=== PATIENT | male | born 1970 | race Caucasian/White ===

== ENCOUNTER 2021-01-24 20:29 | Emergency (ER) | payer OTHER, SELFPAY ==
[2021-01-24 20:40] VITALS: BP 119/62; PULSE 88; RESP 18; TEMP 37.8; O2SAT 97; BMI 25.0
--- NOTE | 2021-01-24 21:59 | ED_ITS ---
HPI - SOB/Dyspnea General Chief Complaint: Fever Stated Complaint: COVID POSITIVE UNCONTROLLED FEVER Time Seen by Provider: 01/24/21 21:58 Source: patient Mode of arrival: Ambulatory History of Present Illness HPI Narrative: Patient is a 50-year-old male who presents with known COVID positive. He started having symptoms 6 days ago, he tested positive 3 days ago. He is concerned today because of his significant temperature swings. He says he is really hot and cold. His temperature rises up to 103 and goes back down to 98.6. He denies any cough or shortness of breath. He is vaccinated he got his vaccine the beginning of December. He is otherwise healthy. He says tonight he was worried because he was getting a freezing cold temperature was right thumb he took Advil continue to her eyes at which point took Tylenol and decided to come to the emergency department were temperature is 100?. Actually read taken myself is now 98.4 He denies any headaches, nausea or vomiting. He does complain of loss of taste and smell. Review of Systems Review of Systems Narrative: GENERAL: + fever,+ fatigue HEENT: Denies sinus pain, ear pain, sore throat, difficulty swallowing, neck pain RESPIRATORY: Denies dyspnea, cough, wheezing, hemoptysis, sputum. CARDIOVASCULAR: Denies chest pain, palpitations, orthopnea, edema GASTROINTESTINAL: Denies nausea, vomiting, abdominal pain, diarrhea, constipation, melena. : Denies dysuria, frequency, incontinence, hematuria, urinary retention, flank pain. MUSCULOSKELETAL: Denies weakness, joint pain, or bony pain SKIN: No rash, no erythema, no pruritus NEUROLOGIC: Denies weakness, dizziness, headache, numbness, change in speech, confusion PSYCHIATRIC: No concerning psychosocial issues. 12 point review of systems is negative except for those stated above and HPI Patient History Social History Smoking Status: Never smoker Smoking Status: Never smoker alcohol intake frequency: 0-2 drinks per day Substance Use Type: does not use Exam Initial Vital Signs Initial Vital Signs: Vital Signs Temperature 100.0 F H 01/24/21 20:40 Pulse Rate 88 01/24/21 20:40 Respiratory Rate 18 01/24/21 20:40 Blood Pressure 119/62 01/24/21 20:40 Pulse Oximetry 97 01/24/21 20:40 GENERAL: Alert well-appearing 50-year-old male and in no acute distress. HEENT: Head atraumatic,EOMI, pupils reactive, face symmetric, moist mucous membranes CARDIOVASCULAR: Regular rate and rhythm without murmurs, rubs or gallops. RESPIRATORY: Breath sounds equal bilaterally, no wheezes rales or rhonchi. EXTREMITIES: Normal range of motion, no clubbing or edema. Neurovascularly intact NEUROLOGICAL: Alert and oriented x4.Normal gait and speech. SKIN: Warm, dry, no laceration, no petechiae, no rashes or lesions. Course Vital Signs Vital signs: Vital Signs - 8 hr 01/24/21 20:40 01/24/21 22:27 Temperature 100.0 F H 100 F H Pulse Rate 88 Respiratory Rate 18 Blood Pressure 119/62 Pulse Oximetry 97 97 MDM - SOB/Dyspnea MDM Narrative Medical decision making narrative: The patient is educated on fever and when and how to treat the fever. He is certainly not hypoxic he is vaccinated with no comorbidities. I discussed with him home monitoring and when to return to the ED. at this time he does not meet any inpatient criteria. I see no need for any further workup. He overall appears very well Discharge Plan Departure Patient Disposition: Home Clinical Impression: COVID-19 Instructions: COVID-19 Viral Test Activity Restrictions/Additional Instructions: *You have been diagnosed with COVID-19 *What to do: At this time please monitor oxygen at home, oxygen should remain above 90%. If it is decreasing the knee need to return to the emergency department. Please follow CDC guidelines in regards to quarantine and isolation. Fever is body's natural defense mechanism against infectious process, it is expected that he would have fever during this time. *Continue to take medications as directed Ibuprofen 800 mg every 8 hours if needed for pain Tylenol 1000 mg every 6 hours if needed for fever *Follow up with your primary care provider in 2-3 days *Return to ER if you should have oxygen less than 90%, increasing shortness of breath, not drinking any new, worsening or concerning symptoms Referrals: [facility] [Outside]
[2021-01-24 22:27] VITALS: TEMP 37.7; O2SAT 97
== END 2021-01-24 22:28 | disposition home or self-care (01) ==
PROVIDERS: Emergency Provider Emergency Medicine
DX: U07.1 COVID-19 (principal)
CPT/HCPCS: 99281

== ENCOUNTER 2021-01-28 16:07 | Inpatient (IN) | payer OTHER, SELFPAY ==
[2021-01-28] VITALS (16 sets, daily range): BP systolic 113–134; BP diastolic 59–71; PULSE 88–94; RESP 21–39; TEMP 37.7–39.4; O2SAT 85–96; BMI 25.0; BMI 25.2
--- NOTE | 2021-01-28 17:29 | ED_ITS ---
HPI - General Adult General Chief complaint: Shortness of Breath/Dyspnea Stated complaint: possible pneumonia Time Seen by Provider: 01/28/21 17:17 Source: patient Mode of arrival: Ambulatory Limitations: no limitations History of Present Illness HPI narrative: Patient is a 50-year-old male. Is fully vaccinated against COVID-19. Receive the [employer] vaccine. Approximately 10 days ago started having sy mptoms that were consistent with COVID. He did test positive for COVID. Was seen here in the emergency department because of temperatures that seem to be rising and falling. He was provided reassurance and discharged home. Since that time he purchased a pulse oximeter. He states that his family also had symptoms with they have improved. He continues to have shortness of breath and feeling very fatigued. Specifically shortness of breath with exertion. Oxygen saturations at home were consistently below 90 with exertion. He contact his primary doctor today. Received a prescription for azithromycin. He has taken 1 dose of this medication. Was also reported that he received a prescription for ivermectin. He has not taken this medication. Related Data Allergies Allergy/AdvReac Type Severity Reaction Status Date / Time No Known Drug Allergies Allergy Verified 01/28/21 16:11 Review of Systems Constitutional Constitutional: Reports fever(s) and Reports headache(s) ENT Ears, Nose, Mouth, and Throat: Reports headache(s) Cardiovascular Cardiovascular: Reports as per HPI, Reports system reviewed and no additional complaints, except as documented, Reports dyspnea and Reports dyspnea on exertion Respiratory Respiratory: Reports cough, Reports dyspnea and Reports dyspnea on exertion Gastrointestinal Gastrointestinal: Reports system reviewed and no additional complaints, except as documented Musculoskeletal Musculoskeletal: Reports system reviewed and no additional complaints, except as documented Integumentary/Breasts Skin/Breast: Reports system reviewed and no additional complaints, except as documented Neurologic Neurologic: Reports system reviewed and no additional complaints, except as documented and Reports headache(s) Hematologic/Lymphatic On Anticoagulants: No Patient History Medical History Patient denies medical problems Social History Smoking Status: Never smoker Smoking Status: Never smoker alcohol intake frequency: holidays/special occasions only Substance Use Type: does not use Exam Initial Vital Signs Initial Vital Signs: Vital Signs Temperature 99.9 F H 01/28/21 16:11 Pulse Rate 92 H 01/28/21 16:11 Respiratory Rate 24 01/28/21 16:11 Blood Pressure 134/65 01/28/21 16:11 Pulse Oximetry 90 L 01/28/21 16:11 Const General: cooperative, comfortable, well developed and well groomed Limitations: mental status not altered [facility] Head: normal to inspection Resp Effort & Inspection: labored and tachypneic Auscultation: rhonchi Cardio Rate: regular rate Rhythm: regular rhythm GI Inspection: non-distended Palpation: soft Back/Spine/Pelvis Back: normal to inspection Skin Lesions: no lesions Rashes: no rashes Neuro General: patient alert, patient awake, patient oriented x3 and moves all extremities Extrem General: capillary refill normal and No edema Psych Appearance: grossly normal and well kempt Course Orders Ordered: ED Orders 01/28/21 17:35 C-Reactive Protein Quant Stat Complete Blood Count AUTO DIFF Stat Comprehensive Metabolic Panel Stat D Dimer Stat Ferritin Stat Lactate (Lactic Acid) Stat Lactate Dehydrogenase Stat NT-proBNP (BNP-Adult 18+) Stat Procalcitonin Stat Troponin & CK Cardiac Panel Stat EKG-12 Lead Stat 01/28/21 17:36 XR chest 1V Stat Sodium Chloride (Normal Saline 0.9%) 1,000 mls @ 125 mls/hr IV CONT HOMERO Last Admin: 01/28/21 17:44 Dose: 125 mls/hr Documented by: ANAYELI Discontinued Medications Dexamethasone (Dexamethasone 10 Mg/Ml Vial) 10 mg IV NOW ONE Stop: 01/28/21 17:36 Last Admin: 01/28/21 17:44 Dose: 10 mg Documented by: ANAYELI Remdesivir 200 mg/ Sodium (Chloride) 250 mls @ 250 mls/hr IV NOW ONE Stop: 01/28/21 18:34 Last Admin: 01/28/21 17:44 Dose: Not Given Documented by: ANAYELI Vital Signs Vital signs: Vital Signs - 8 hr 01/28/21 16:11 Temperature 99.9 F H Pulse Rate 92 H Respiratory Rate 24 Blood Pressure 134/65 Pulse Oximetry 90 L Medical Decision Making Lab Data Lab results reviewed: Yes I reviewed the patient's lab results. Result diagrams: 01/28/21 17:35 01/28/21 17:35 Labs: Lab Results 01/28/21 01/28/21 01/28/21 Range/Units 17:35 17:35 17:35 WBC 10.2 (4.5-11.0) X10^3/uL RBC 4.52 (4.5-5.9) X10^6/uL Hgb 13.5 (13.5-17.5) g/dL Hct 39.6 L (41-53) % MCV 87.6 (80-100) fL MCH 30.0 (26-34) PG MCHC 34.2 (30-36) % RDW 13.9 (11.6-14.8) % Plt Count 196 (150-400) X10^3/uL Neut % (Auto) 86.7 H (50-75) % Lymph % (Auto) 4.9 L (25-40) % [place] % (Auto) 7.6 (3-14) % Eos % (Auto) 0.0 L (2-4) % Baso % (Auto) 0.8 (0-2) % Neut # (Auto) 8800 H (8825-2818) /uL Lymph # (Auto) 500 L (9301-6651) /uL [place] # (Auto) 800 (0-900) /uL Eos # (Auto) 0 (0-450) /uL Baso # (Auto) 100 (0-100) /uL D-Dimer 448 H (<230) ng/mL Sodium 133 L (137-145) mmol/L Potassium 4.6 (3.4-5.1) mmol/L Chloride 96 L (98-107) mmol/L Carbon Dioxide 28 (22-32) mmol/L BUN 15 (9-20) mg/dL Creatinine 0.97 (0.66-1.25) mg/dL Estimated GFR > 60.0 (>60) mL/min BUN/Creatinine Ratio 15.5 (6-22) Glucose 128 H (70-100) mg/dL Lactate (0.7-2.1) mmol/L Calcium 8.3 L (8.4-10.2) mg/dL Total Bilirubin 0.6 (0.2-1.3) mg/dL AST 78 H (17-59) IU/L ALT 42 (<50) IU/L Alkaline Phosphatase 59 (38-126) U/L Lactate Dehydrogenase (313-618) U/L Total Creatine Kinase 693 H (55-170) U/L CK-MB (CK-2) 0.35 (<2.37) ng/mL CK-MB (CK-2) Rel Index 0.1 L (1.5-5.0) % Troponin I < 0.012 (0.01-0.034) ng/mL C-Reactive Protein (<1.0) mg/dL NT-Pro-B Natriuret Pep (<125) pg/mL Total Protein 7.4 (6.3-8.2) g/dL Albumin 4.0 (3.5-5.0) g/dL Globulin 3.4 (1.7-4.1) g/dL Albumin/Globulin Ratio 1.2 (1.0-2.8) Procalcitonin 0.22 (<0.5) ng/mL 01/28/21 01/28/21 Range/Units 17:35 17:35 WBC (4.5-11.0) X10^3/uL RBC (4.5-5.9) X10^6/uL Hgb (13.5-17.5) g/dL Hct (41-53) % MCV (80-100) fL MCH (26-34) PG MCHC (30-36) % RDW (11.6-14.8) % Plt Count (150-400) X10^3/uL Neut % (Auto) (50-75) % Lymph % (Auto) (25-40) % [place] % (Auto) (3-14) % Eos % (Auto) (2-4) % Baso % (Auto) (0-2) % Neut # (Auto) (3783-7931) /uL Lymph # (Auto) (1855-9065) /uL [place] # (Auto) (0-900) /uL Eos # (Auto) (0-450) /uL Baso # (Auto) (0-100) /uL D-Dimer (<230) ng/mL Sodium (137-145) mmol/L Potassium (3.4-5.1) mmol/L Chloride (98-107) mmol/L Carbon Dioxide (22-32) mmol/L BUN (9-20) mg/dL Creatinine (0.66-1.25) mg/dL Estimated GFR (>60) mL/min BUN/Creatinine Ratio (6-22) Glucose (70-100) mg/dL Lactate 2.5 H (0.7-2.1) mmol/L Calcium (8.4-10.2) mg/dL Total Bilirubin (0.2-1.3) mg/dL AST (17-59) IU/L ALT (<50) IU/L Alkaline Phosphatase (38-126) U/L Lactate Dehydrogenase 1331 H (313-618) U/L Total Creatine Kinase (55-170) U/L CK-MB (CK-2) (<2.37) ng/mL CK-MB (CK-2) Rel Index (1.5-5.0) % Troponin I (0.01-0.034) ng/mL C-Reactive Protein 25.8 H (<1.0) mg/dL NT-Pro-B Natriuret Pep 144 H (<125) pg/mL Total Protein (6.3-8.2) g/dL Albumin (3.5-5.0) g/dL Globulin (1.7-4.1) g/dL Albumin/Globulin Ratio (1.0-2.8) Procalcitonin (<0.5) ng/mL MDM Narrative Medical decision making narrative: Patient is hypoxic on room air. Received oxygen by nasal cannula with an improvement of his symptoms and his oxygen saturation. Chest x-ray is consistent with someone with COVID. Patient denied the remdesivir. Patient does require admission the hospital secondary to his hypoxia. Discussed the case with Dr. Mills with Internal Medicine who will may for further evaluation treatment. Discussed the admission with patient expressed understanding and agreement. Discharge Plan Departure Patient Disposition: Admitted As Inpatient Clinical Impression: COVID-19, Hypoxia
--- NOTE | 2021-01-28 17:36 | DI.RAD.S_ITS ---
PROCEDURE: XR CHEST 1V INDICATIONS: flu-like symptoms TECHNIQUE: One view of the chest was acquired. COMPARISON: None. FINDINGS: Surgical changes and devices: None. Lungs and pleura: Patchy bilateral pulmonary infiltrates consistent with pneumonia. Low lung volumes accentuate pulmonary interstitium and heart size. Mediastinum: Mediastinal contours appear normal. Heart size is normal. Bones and chest wall: No suspicious bony lesions. Overlying soft tissues appear unremarkable. IMPRESSION: Patchy bilateral pulmonary infiltrates, consistent with pneumonia Approved by: Kalyan Rosa M.D. on 01/28/2021 at 18:01
[2021-01-28] MEDS: DEXAMETHASONE 10 MG/ML VIAL IV (17:44)
[2021-01-28] MEDS: SODIUM CHLORIDE 0.9% 1,000 ML 125 ML IV (17:44)
[2021-01-28 17:55] LABS: Add Manual Diff / Slide Review NO; Basophils Absolute Auto 100 /uL (0-100); Basophils Percent Auto 0.8 % (0-2); Eosinophils Absolute Auto 0 /uL (0-450); Hematocrit 39.6 % (41-53); Hemoglobin 13.5 g/dL (13.5-17.5); Lymphocytes Absolute Auto 500 /uL (1100-4500); Lymphocytes Percent Auto 4.9 % (25-40); Mean Corpuscular HGB Conc 34.2 % (30-36); Mean Corpuscular Volume 87.6 fL (80-100); Monocytes Absolute Auto 800 /uL (0-900); Monocytes Percent Auto 7.6 % (3-14); Neutrophils Absolute Auto 8800 /uL (1500-7000); Neutrophils Percent Auto 86.7 % (50-75); Platelet Count 196 X10^3/uL (150-400); Red Blood Cell Count 4.52 X10^6/uL (4.5-5.9); Red Cell Distribution Width 13.9 % (11.6-14.8); White Blood Cell Count 10.2 X10^3/uL (4.5-11.0)
[2021-01-28 18:03] LABS: D Dimer 448 ng/mL (<230)
[2021-01-28 18:04] LABS: Alanine Aminotransferase 42 IU/L (<50); Albumin Globulin Ratio 1.2 (1.0-2.8); Alkaline Phosphatase 59 U/L (38-126); Aspartate Aminotransferase 78 IU/L (17-59); BUN Creatinine Ratio 15.5 (6-22); Bilirubin Total 0.6 mg/dL (0.2-1.3); Blood Urea Nitrogen 15 mg/dL (9-20); Calcium 8.3 mg/dL (8.4-10.2); Carbon Dioxide 28 mmol/L (22-32); Chloride 96 mmol/L (98-107); Creatine Kinase 693 U/L (55-170); Estimated Glomerular Filt Rate > 60.0 mL/min (>60); Globulin 3.4 g/dL (1.7-4.1); Glucose 128 mg/dL (70-100); HEMOLYSIS 18 (0-50); Lactate (Lactic Acid) 2.5 mmol/L (0.7-2.1); Potassium 4.6 mmol/L (3.4-5.1); Sodium 133 mmol/L (137-145); Total Protein 7.4 g/dL (6.3-8.2)
[2021-01-28 18:08] LABS: Lactate Dehydrogenase 1331 U/L (313-618)
[2021-01-28 18:13] LABS: NT-proBNP (BNP-Adult 18+) 144 pg/mL (<125)
[2021-01-28 18:16] LABS: Troponin I < 0.012 ng/mL (0.01-0.034)
[2021-01-28 18:19] LABS: CKMB % Relative Index 0.1 % (1.5-5.0); Creatine Kinase MB 0.35 ng/mL (<2.37)
[2021-01-28 18:20] LABS: C-Reactive Protein Quant 25.8 mg/dL (<1.0); Procalcitonin 0.22 ng/mL (<0.5)
[2021-01-28 19:32] LABS: Ferritin 1360 ng/mL (18-464)
[2021-01-28 19:46] LABS: Reflexed Lactate in 2 Hours Y
[2021-01-28 21:40] LABS: Lactate 2HR (Lactic Acid Rflx) 1.1 mmol/L (0.7-2.1)
[2021-01-28] MEDS: ACETAMINOPHEN 325 MG TABLET 650 MG PO (21:43)
--- NOTE | 2021-01-28 22:00 | PM.HP.1 ---
History of Present Illness History of Present Illness Time Patient Seen: 22:00 Chief complaint: possible pneumonia Narrative: Mr. Leal is a 50M with no significant PMH who presents with fevers, cough and recent positive COVID test. He notes that he did get the JJ vaccine in early December. Approximately 10 days ago he began developing symptoms of cough. He was seen here in the ED a few days ago but was able to be discharged home. His family has had symptoms of COVID. Since being discharge he has had worsening shortness of breath and fevers. He bought a pulse ox with sats in the 80s primarily with exertion. He was prescribed azithromycin and ivermectin, but has not taken ivermectin. He did not get monoclonal antibody. In the ED workup was done, vitals notable for temperature of 99.9, hr in 90s, rr in 20s, pulse ox in high 80s to low 90s. He was placed on oxygen. Labs notable for WBC 10.2, hgb 13.5, plts 196, na 133, creatinine 0.97. Lactate 2.5, improved to 1.1 with IV fluids. CRP 25.8, ldh 1331. Chest xray showed patchy bilateral pulmonary infiltrates. He was admitted for further treatment. Family history: patient denies any known medical history for parents Patient History Medical History Patient denies medical problems Family & Social History Social History: household members spouse,children Prior Living Arrangements House Safety & Behavioral: Feels Safe in Current Yes Environment Been Physically Hurt or No Threatened By a Person Suicidal Ideation Description None Suicide Plan Description No Plan Tobacco & Substance use: Smoking Status Never smoker alcohol intake frequency holiday/special occasion Substance Use Type does not use Meds Home Medications and Allergies Home Medications Medication Instructions Recorded Confirmed Type azithromycin 250 mg capsule 500 mg PO 01/28/21 History Allergies Allergy/AdvReac Type Severity Reaction Status Date / Time No Known Drug Allergies Allergy Verified 01/28/21 16:11 Review of Systems Review of Systems Narrative: 14 systems reviewed and negative aside from what is noted in HPI Exam Vital Signs (past 8 hours): - 01/28/21 19:23 01/28/21 19:27 01/28/21 19:30 Temperature Pulse Rate 90 Respiratory Rate 30 H Blood Pressure 116/63 Pulse Oximetry 93 93 92 01/28/21 20:00 01/28/21 20:30 01/28/21 20:45 Temperature 100.7 F H Pulse Rate 88 94 H Respiratory Rate 32 H 21 Blood Pressure 120/64 115/59 L Pulse Oximetry 95 85 L 93 01/28/21 21:22 01/28/21 21:43 01/28/21 22:33 Temperature 101.4 F H 103 F H 101.4 F H Pulse Rate Respiratory Rate Blood Pressure Pulse Oximetry 01/28/21 23:40 01/29/21 00:00 Temperature 97.9 F Pulse Rate Respiratory Rate 24 Blood Pressure Pulse Oximetry 92 Oxygen Delivery Method Nasal Cannula Oxygen Flow Rate 5 Narrative Exam Narrative: GEN: mild respiratory distress, tachypneic, unable to speak full sentences due to coughing HEENT: moist mucous membranes, PERRL NECK: trachea midline, no JVD CV: regular rate and rhythm, no murmurs PULM: poor air movement bilaterally, coarse breath sounds ABD: soft, nontender, nondistended, no organomegaly, normal bowel sounds EXT: warm and well perfused with no edema NEURO: awake, alert, oriented, moving all extremities Objective Labs Result Diagrams: 01/28/21 17:35 01/28/21 17:35 Labs: Laboratory Results - last 24 hr 01/28/21 01/28/21 01/28/21 17:35 17:35 17:35 WBC 10.2 RBC 4.52 Hgb 13.5 Hct 39.6 L MCV 87.6 MCH 30.0 MCHC 34.2 RDW 13.9 Plt Count 196 Neut % (Auto) 86.7 H Lymph % (Auto) 4.9 L [place] % (Auto) 7.6 Eos % (Auto) 0.0 L Baso % (Auto) 0.8 Neut # (Auto) 8800 H Lymph # (Auto) 500 L [place] # (Auto) 800 Eos # (Auto) 0 Baso # (Auto) 100 D-Dimer 448 H Sodium 133 L Potassium 4.6 Chloride 96 L Carbon Dioxide 28 BUN 15 Creatinine 0.97 Estimated GFR > 60.0 BUN/Creatinine Ratio 15.5 Glucose 128 H Lactate Calcium 8.3 L Ferritin Total Bilirubin 0.6 AST 78 H ALT 42 Alkaline Phosphatase 59 Lactate Dehydrogenase Total Creatine Kinase 693 H CK-MB (CK-2) 0.35 CK-MB (CK-2) Rel Index 0.1 L Troponin I < 0.012 C-Reactive Protein NT-Pro-B Natriuret Pep Total Protein 7.4 Albumin 4.0 Globulin 3.4 Albumin/Globulin Ratio 1.2 Procalcitonin 0.22 SARS-CoV-2 (PCR) 01/28/21 01/28/21 01/28/21 17:35 17:35 21:13 WBC RBC Hgb Hct MCV MCH MCHC RDW Plt Count Neut % (Auto) Lymph % (Auto) [place] % (Auto) Eos % (Auto) Baso % (Auto) Neut # (Auto) Lymph # (Auto) [place] # (Auto) Eos # (Auto) Baso # (Auto) D-Dimer Sodium Potassium Chloride Carbon Dioxide BUN Creatinine Estimated GFR BUN/Creatinine Ratio Glucose Lactate 2.5 H 1.1 Calcium Ferritin 1360 H Total Bilirubin AST ALT Alkaline Phosphatase Lactate Dehydrogenase 1331 H Total Creatine Kinase CK-MB (CK-2) CK-MB (CK-2) Rel Index Troponin I C-Reactive Protein 25.8 H NT-Pro-B Natriuret Pep 144 H Total Protein Albumin Globulin Albumin/Globulin Ratio Procalcitonin SARS-CoV-2 (PCR) 01/29/21 00:00 WBC RBC Hgb Hct MCV MCH MCHC RDW Plt Count Neut % (Auto) Lymph % (Auto) [place] % (Auto) Eos % (Auto) Baso % (Auto) Neut # (Auto) Lymph # (Auto) [place] # (Auto) Eos # (Auto) Baso # (Auto) D-Dimer Sodium Potassium Chloride Carbon Dioxide BUN Creatinine Estimated GFR BUN/Creatinine Ratio Glucose Lactate Calcium Ferritin Total Bilirubin AST ALT Alkaline Phosphatase Lactate Dehydrogenase Total Creatine Kinase CK-MB (CK-2) CK-MB (CK-2) Rel Index Troponin I C-Reactive Protein NT-Pro-B Natriuret Pep Total Protein Albumin Globulin Albumin/Globulin Ratio Procalcitonin SARS-CoV-2 (PCR) Positive H Assessment & Plan Assessment & Plan narrative: Mr. Leal is a 50M with no significant PMH who presents with fevers, cough, shortness of breath found to have COVID pneumonia. 1. Acute hypoxemic respiratory failure secondary to COVID pneumonia -did get vaccinated with J+J vaccine in early December -decline remdesivir -ordered for dexamethasone -supplemental o2 for sats goal >90% -advise to prone as frequently as possible CODE: Full Proxy: Rosario Carranza, family I have utilized all available immediate resources to obtain, update, or review of the patient's current medications Time Spent With Patient Critical Care time: I spent a total of [] minutes of critical care time on this patient's care today; this time is exclusive of procedural time. Quality VTE Deep Vein Thrombosis/Pulmonary Embolism Present on Admission: No MIPS - Admit I confirm the patient?s Advance Care Plan is present, Code status is documented, Surrogate decision maker is in patient?s record [If Yes, STOP here]: Yes
--- NOTE | 2021-01-28 22:24 | PC.ADMIT ---
Addendum entered by Suzie Sevilla R.N. 01/29/21 01:53: Up to bathroom with SBA. Had small loose BM and voided 625cc. When back to bed O2 sat down to 85% and took approximately 5 minutes to get sat back > 90%. Coughing quite a bit but non productive. Had attempted proning earlier after discussion but states he was unable to tolerate it for very long. Original Note: [email or web address] Patient admitted to room 204 from ER per stepriscilaer and transferred into bed. Patient is alert and oriented. Breath sounds diminished throughout. Respirations are shallow and has exacerbation of cough when trying to take deep breaths. States prior to coming to hospital had been coughing up tam/green sputum but cough has been non productive today. Arrived on oxygen at 3L/min per NC with sat of 85% so increased oxygen to 5L/min and was 90% when getting up to bathroom and 93% at rest. Placed on continuous oximetry. Temp was initially elevated at 100.[address] Rodriguez contacted as no orders had yet been entered for patient. After receiving Tylenol order rechecked temp and was 103 and was medicated with Tylenol and temp now rechecked and is 101.4. BT hypoactive and patient reports he has been taking in mostly liquids and stools have been loose. Up to bathroom with SBA (patient appears very weak) and voided 400cc dark guerda urine. Advised patient to call for assistance when needing to get out of bed and he verbalized understanding. Is able to turn himself in bed. Reports pain in lungs when coughing. On isolation precautions as tested covid +. Oriented to call light and bed controls. Fall risk score is moderate. Admission Note: The patient,Ollie Leal,50 y/o, was given written information regarding hospital policies, unit procedures and contact persons. Patient's smoking status: Never smoker. Vital Signs - 8 hr 01/28/21 16:11 01/28/21 17:18 01/28/21 17:30 Temperature 99.9 F H Pulse Rate 92 H 91 H 91 H Respiratory Rate 24 24 Blood Pressure 134/65 130/71 119/67 Pulse Oximetry 90 L 92 95 01/28/21 18:00 01/28/21 18:30 01/28/21 19:00 Temperature Pulse Rate 88 90 90 Respiratory Rate 26 H 39 H 36 H Blood Pressure 113/63 114/62 117/64 Pulse Oximetry 96 94 96 01/28/21 19:30 01/28/21 20:00 01/28/21 20:30 Temperature Pulse Rate 90 88 Respiratory Rate 30 H 32 H Blood Pressure 116/63 120/64 Pulse Oximetry 92 95 85 L 01/28/21 20:45 01/28/21 21:43 Temperature 100.7 F H 103 F H Pulse Rate 94 H Respiratory Rate 21 Blood Pressure 115/59 L Pulse Oximetry 93
[2021-01-29] VITALS (12 sets, daily range): BP systolic 102–123; BP diastolic 69–85; PULSE 65–86; RESP 16–24; TEMP 36.4–37.2; O2SAT 83–93; BMI 25.2
[2021-01-29 00:55] LABS: COVID19 - ADMIT (NP swab/PCR) POSITIVE (Negative)
[2021-01-29 06:34] LABS: Add Manual Diff / Slide Review NO; Basophils Absolute Auto 0 /uL (0-100); Basophils Percent Auto 0.2 % (0-2); Eosinophils Absolute Auto 0 /uL (0-450); Hematocrit 38.8 % (41-53); Hemoglobin 13.2 g/dL (13.5-17.5); Lymphocytes Absolute Auto 700 /uL (1100-4500); Lymphocytes Percent Auto 7.3 % (25-40); Mean Corpuscular HGB Conc 34.1 % (30-36); Monocytes Absolute Auto 600 /uL (0-900); Monocytes Percent Auto 6.3 % (3-14); Neutrophils Absolute Auto 8000 /uL (1500-7000); Neutrophils Percent Auto 86.2 % (50-75); Platelet Count 216 X10^3/uL (150-400); Red Blood Cell Count 4.41 X10^6/uL (4.5-5.9); White Blood Cell Count 9.3 X10^3/uL (4.5-11.0)
[2021-01-29 06:46] LABS: Blood Urea Nitrogen 16 mg/dL (9-20); Calcium 8.2 mg/dL (8.4-10.2); Carbon Dioxide 28 mmol/L (22-32); Chloride 101 mmol/L (98-107); Estimated Glomerular Filt Rate > 60.0 mL/min (>60); Glucose 157 mg/dL (70-100); HEMOLYSIS < 15 (0-50); Potassium 4.8 mmol/L (3.4-5.1); Sodium 135 mmol/L (137-145)
--- NOTE | 2021-01-29 06:50 | P.PN_ITS ---
Subjective Subjective Date Patient Seen: 01/29/21 Time Patient Seen: 06:30 Interval history: This morning he feels improved. Overnight he did spike a fever to 103. He improved with tylenol. Oxygen was increased to 5L. This morning he feels less short of breath. His cough has improved. Exam Vital Signs (past 8 hours): - 01/28/21 23:40 01/29/21 00:00 01/29/21 03:25 Temperature 97.9 F 98.2 F Pulse Rate Respiratory Rate 24 Blood Pressure Pulse Oximetry 92 01/29/21 04:12 01/29/21 05:25 Temperature 97.7 F Pulse Rate 65 Respiratory Rate 16 Blood Pressure 119/77 Pulse Oximetry 93 91 Oxygen Delivery Method Nasal Cannula Oxygen Flow Rate 5 Narrative Exam Narrative: GEN: no acute distress HEENT: moist mucous membranes, PERRL NECK: trachea midline, no JVD CV: regular rate and rhythm, no murmurs PULM: poor air movement bilaterally ABD: soft, nontender, nondistended, no organomegaly, normal bowel sounds EXT: warm and well perfused with no edema NEURO: awake, alert, oriented, moving all extremities Objective Labs Result Diagrams: 01/29/21 06:12 01/29/21 06:12 Labs: Laboratory Results - last 24 hr 01/28/21 01/28/21 01/28/21 17:35 17:35 17:35 WBC 10.2 RBC 4.52 Hgb 13.5 Hct 39.6 L MCV 87.6 MCH 30.0 MCHC 34.2 RDW 13.9 Plt Count 196 Neut % (Auto) 86.7 H Lymph % (Auto) 4.9 L [place] % (Auto) 7.6 Eos % (Auto) 0.0 L Baso % (Auto) 0.8 Neut # (Auto) 8800 H Lymph # (Auto) 500 L [place] # (Auto) 800 Eos # (Auto) 0 Baso # (Auto) 100 D-Dimer 448 H Sodium 133 L Potassium 4.6 Chloride 96 L Carbon Dioxide 28 BUN 15 Creatinine 0.97 Estimated GFR > 60.0 BUN/Creatinine Ratio 15.5 Glucose 128 H Lactate Calcium 8.3 L Ferritin Total Bilirubin 0.6 AST 78 H ALT 42 Alkaline Phosphatase 59 Lactate Dehydrogenase Total Creatine Kinase 693 H CK-MB (CK-2) 0.35 CK-MB (CK-2) Rel Index 0.1 L Troponin I < 0.012 C-Reactive Protein NT-Pro-B Natriuret Pep Total Protein 7.4 Albumin 4.0 Globulin 3.4 Albumin/Globulin Ratio 1.2 Procalcitonin 0.22 SARS-CoV-2 (PCR) 01/28/21 01/28/21 01/28/21 17:35 17:35 21:13 WBC RBC Hgb Hct MCV MCH MCHC RDW Plt Count Neut % (Auto) Lymph % (Auto) [place] % (Auto) Eos % (Auto) Baso % (Auto) Neut # (Auto) Lymph # (Auto) [place] # (Auto) Eos # (Auto) Baso # (Auto) D-Dimer Sodium Potassium Chloride Carbon Dioxide BUN Creatinine Estimated GFR BUN/Creatinine Ratio Glucose Lactate 2.5 H 1.1 Calcium Ferritin 1360 H Total Bilirubin AST ALT Alkaline Phosphatase Lactate Dehydrogenase 1331 H Total Creatine Kinase CK-MB (CK-2) CK-MB (CK-2) Rel Index Troponin I C-Reactive Protein 25.8 H NT-Pro-B Natriuret Pep 144 H Total Protein Albumin Globulin Albumin/Globulin Ratio Procalcitonin SARS-CoV-2 (PCR) 01/29/21 01/29/21 01/29/21 00:00 06:12 06:12 WBC 9.3 RBC 4.41 L Hgb 13.2 L Hct 38.8 L MCV 88.0 MCH 30.0 MCHC 34.1 RDW 14.0 Plt Count 216 Neut % (Auto) 86.2 H Lymph % (Auto) 7.3 L [place] % (Auto) 6.3 Eos % (Auto) 0.0 L Baso % (Auto) 0.2 Neut # (Auto) 8000 H Lymph # (Auto) 700 L [place] # (Auto) 600 Eos # (Auto) 0 Baso # (Auto) 0 D-Dimer Sodium 135 L Potassium 4.8 Chloride 101 Carbon Dioxide 28 BUN 16 Creatinine 0.84 Estimated GFR > 60.0 BUN/Creatinine Ratio 19.0 Glucose 157 H Lactate Calcium 8.2 L Ferritin Total Bilirubin AST ALT Alkaline Phosphatase Lactate Dehydrogenase Total Creatine Kinase CK-MB (CK-2) CK-MB (CK-2) Rel Index Troponin I C-Reactive Protein NT-Pro-B Natriuret Pep Total Protein Albumin Globulin Albumin/Globulin Ratio Procalcitonin SARS-CoV-2 (PCR) Positive H PFSH Medical History Patient denies medical problems Social History household members: spouse and children Smoking Status: Never smoker Assessment & Plan Assessment & Plan narrative: Mr. Leal is a 50M with no significant PMH who presents with fevers, cough, shortness of breath found to have COVID pneumonia. 1. Acute hypoxemic respiratory failure secondary to COVID pneumonia -did get vaccinated with J+J vaccine in early December -declined remdesivir -ordered for dexamethasone -supplemental o2 for sats goal >90% -advise to prone as frequently as possible -overnight o2 requirements did increase from 2L to 5L oxygen, wean as tolerated Time Spent With Patient Critical Care time: I spent a total of [] minutes of critical care time on this patient's care today; this time is exclusive of procedural time. Quality VTE Deep Vein Thrombosis/Pulmonary Embolism Present on Admission: No
[2021-01-29] MEDS: SODIUM CHLORIDE 0.9% FLUSH 10 ML IV ×2 (09:26→22:01)
[2021-01-29] MEDS: ENOXAPARIN 40 MG/0.4 ML SYRINGE SUBCUT (09:26)
[2021-01-29] MEDS: DEXAMETHASONE 10 MG/ML VIAL 6 MG IV (09:26)
[2021-01-29] MEDS: ACETAMINOPHEN 325 MG TABLET 650 MG PO ×2 (09:26→22:01)
--- NOTE | 2021-01-29 11:12 | CM.DANOTE ---
DCP assessment: patient is a 50 yr old male who was admitted for Covid pneumonia. Patient currently on high flow 10L per NC. CM called patient due to Covid + status was unable to meet in person. Patient was alert and oriented x4 during phone conversation patient stated he lives here in [place] with his Rosario and there two young children. 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 I: prime and self pay Plan: DC home with no identified DC planning needs at this time. CM department will follow to assist with any new DC planning needs that may arise. Yuki Wang RNvehicle calibration engineer Discharge Planning/Care Management CM Discharge Assessment Start: 01/29/21 11:09 Freq: Status: Active Protocol: Document 01/29/21 11:09 (Rec: 01/29/21 11:11 [id number]) Discharge Planning Assessment Assigned Coater Helper Yuki Wang RN Case Manger DPOA/Assigned Designee Name Rosario Carranza- Contact Information [phone] Advance Directives? No History Provided By Patient Has Patient been admitted in last 30 No days? Prior Living Arrangements House Household Members spouse,children Comment patient lives with his and their two children a 4 yr old and a 6 yr old Type of transporation used prior to Drives own vehicle admit Independent with ADL's Yes Is patient alert and oriented? Yes Comment No needs with ADLS Caregiver for Another Yes: Patient has two children ages 4 & 6 Comment Currently on high flow oxygen 10L of O2 per NC Comment NO DME used at [employer] Comment Patient may need Home O2 at DC depending on Oxygenation needs at dc Barriers to Discharge No Discharge Plan Home Referrals Initiated None needed Whiteboard Updated in Patient Room with Yes name and ext. # of Coater Helper Review Status In Process Next Review Type Continued Stay Review
--- NOTE | 2021-01-29 11:58 | PC.NURSE ---
Day shift: Pt seen by PT this AM and is now on 6L HFNC with O2 of 95%. Instructed on I.S. use and encouraged to cough and deep breath. Tolerating his lunch at this time. Dr Mills and charge nurse informed of Pt now being on HFNC. Pt agrees to let RN know if having cough that wont stop or any difficulty breathing. VS WNL. Afebrile this AM. Will continue w/ plan of care. Call light in reach.
--- NOTE | 2021-01-29 13:17 | PC.NURSE ---
Day shift: Pt now has a bag of personal belongings in his room that were brought to him today at approx 1300. Remains on HF NC at 7L and 94% at rest. HE is eating and tolerating his lunch. Call light in reach.
--- NOTE | 2021-01-29 15:01 | PC.NURSE ---
Day shift: Pt's home meds given to Beny in pharmacy at approx 1500 today. This ad copy writer in Pt's room and Pt is using I.S. as directed. Coughing up small amounts of phlegm. Remains on 7L HF NC and O2 96%. Lunch is at bedside and Pt said he is still working on it. Call light in reach. Denies any nausea or pain.
[2021-01-30] VITALS (7 sets, daily range): BP systolic 112–120; BP diastolic 61–76; PULSE 68–89; RESP 16–20; TEMP 36.2–37.1; O2SAT 86–95
[2021-01-30] MEDS: SODIUM CHLORIDE 0.9% FLUSH 10 ML IV ×2 (08:41→21:20)
[2021-01-30] MEDS: DEXAMETHASONE 10 MG/ML VIAL 6 MG IV (08:44)
[2021-01-30] MEDS: ACETAMINOPHEN 325 MG TABLET 650 MG PO ×2 (08:45→21:20)
[2021-01-30] MEDS: ENOXAPARIN 40 MG/0.4 ML SYRINGE SUBCUT (08:45)
[2021-01-30] MEDS: AZITHROMYCIN 250 MG TABLET PO (10:45)
--- NOTE | 2021-01-30 14:14 | PM.PN.1 ---
Subjective Subjective Interval history: Patient reports his SOB is still around baseline, from when he initially became sick 4 days ago. He required an increase in his oxygen needs from 2 liters to 5 liters and then 10 liters. He is on 10 liters this morning breathing comfortably, speaking in full sentences. He reports worsening SOB with ambulation. However, he denies issues at rest. Exam Vital Signs (past 8 hours): - 01/30/21 09:00 01/30/21 09:12 Temperature 98.8 F Pulse Rate 75 Respiratory Rate 16 Blood Pressure 112/66 Pulse Oximetry 86 L 91 Oxygen Delivery Method High Flow Nasal Cannula Oxygen Flow Rate 10 Narrative Exam Narrative: Patient sitting up in bed comfortably upon my entering the room, in no apparent acute distress. HENMT Other: Nasal cannulae in place, with 10 liters running. Eyes Other: No scleral icterus appreciated. Neck Other: No JVD noted. Resp Other: Rhonchi appreciated bilaterally, worse over mid-lung regions and bibasilar. Cardio Other: Regular rate and rhythm. S1 and S2 heart sounds auscultated with no extra heart sounds or murmurs appreciated. No peripheral edema noted. GI Other: Soft, non-distended, non-tender. Bowel sounds present. Skin Other: No nancy skin lesions appreciated grossly. Extrem Other: Palpable bilateral dorsalis pedis pulses. Objective Labs Result Diagrams: 01/29/21 06:12 01/29/21 06:12 [facility] Medical History Patient denies medical problems Social History household members: spouse and children Smoking Status: Never smoker Assessment & Plan Assessment & Plan narrative: Assessment: 1. Acute hypoxic respiratory failure secondary to COVID-19 pneumonia 2. Severe COVID-19 pneumonia Plan: 1. Requiring 10 liters of supplemental oxygen. Will likely need respiratory support for a few days. IV dexamethasone 6 mg daily on-board. 2. The patient believes he acquired this from his school-age children at home. Oxygen support with IV dexamethasone as above. The patient declined remdesivir, citing possible side effects. VTE prophylaxis: Lovenox 40 units once daily Disposition: Home, once clinically stable, will likely require home oxygen Time Spent With Patient Critical Care time: I spent a total of [] minutes of critical care time on this patient's care today; this time is exclusive of procedural time. Quality VTE Deep Vein Thrombosis/Pulmonary Embolism Present on Admission: No
[2021-01-31] VITALS (8 sets, daily range): BP systolic 110–132; BP diastolic 66–81; PULSE 53–78; RESP 16–31; TEMP 36.3–36.9; O2SAT 89–98
[2021-01-31] MEDS: ENOXAPARIN 40 MG/0.4 ML SYRINGE SUBCUT (08:40)
[2021-01-31] MEDS: DEXAMETHASONE 10 MG/ML VIAL 6 MG IV (08:40)
[2021-01-31] MEDS: AZITHROMYCIN 250 MG TABLET PO (08:42)
[2021-01-31] MEDS: SODIUM CHLORIDE 0.9% FLUSH 10 ML IV ×2 (08:42→21:39)
--- NOTE | 2021-01-31 12:11 | PC.NURSE ---
pt transferred to ICU, report given to Aliya, Coordinator explained to patient that he was going to ICU
--- NOTE | 2021-01-31 12:25 | PC.NURSE ---
RECEIVED PT FROM 204 DUE TO INCREASING NEEDS OF O2 - PRESENTLY 91% 12L HFNC- HE REPORTS NO PAIN, IS INTOLERANT OF PRONING PER HIS REPORT HE IS ABLE TO SIDE-LIE - NSR ON TELE NO EDEMA NOTED AND SALINE LOCKED
--- NOTE | 2021-01-31 14:15 | P.PN_ITS ---
Subjective Subjective Date Patient Seen: 01/31/21 Time Patient Seen: 14:16 Interval history: He is seen today to follow-up his COVID pneumonia. His oxygen need has steadily increased, now up to 11 L to maintain sats in the low 90s. He continues to decline remdesivir stating that he has an acquaintance who lost his father within 3 days of starting remdesivir. He does not have a clear idea of why it was blamed on that medicine and not on dexamethasone, for instance. Exam Vital Signs (past 8 hours): - 01/31/21 06:19 01/31/21 09:16 01/31/21 09:26 Temperature 97.9 F 98.4 F Pulse Rate 66 78 Respiratory Rate 16 20 Blood Pressure 110/78 122/66 Pulse Oximetry 92 89 L 89 L Oxygen Delivery Method High Flow Nasal Cannula Oxygen Flow Rate 11 Narrative Exam Narrative: He is alert and oriented x3. He is in no visible respiratory distress although he indicates that his breathing is quite shallow and demonstrates on the incentive spirometer that his lung capacity is very, very low. Heart is regular rate and rhythm without murmur Lungs have bibasilar crackles Extremities have no ankle edema Objective Labs Result Diagrams: 01/29/21 06:12 01/29/21 06:12 [facility] Medical History Patient denies medical problems Social History household members: spouse and children Smoking Status: Never smoker Assessment & Plan Assessment & Plan narrative: Assessment: 1. Acute hypoxic respiratory failure secondary to COVID-19 pneumonia 2. Severe COVID-19 pneumonia Plan: 1. Requiring 11 liters of supplemental oxygen. Due to the increasing possibility of needing high-flow nasal cannula oxygen he has been moved to the intensive care unit today. 2. The patient believes he acquired this from his school-age children at home. Oxygen support with IV dexamethasone as above. The patient declined remdesivir, citing possible side effects. 3. His last metabolic panel and CBC on 01/28 were normal. No indication to repeat those at this point. VTE prophylaxis: Lovenox 40 units once daily Disposition: Home, once clinically stable, will likely require home oxygen Time Spent With Patient Critical Care time: I spent a total of [] minutes of critical care time on this patient's care today; this time is exclusive of procedural time. Quality VTE Deep Vein Thrombosis/Pulmonary Embolism Present on Admission: No
[2021-01-31] MEDS: MELATONIN 3 MG TABLET 6 MG PO (21:38)
[2021-01-31] MEDS: ACETAMINOPHEN 325 MG TABLET 650 MG PO (21:38)
[2021-02-01] VITALS (8 sets, daily range): BP systolic 92–139; BP diastolic 56–91; PULSE 55–72; RESP 16–18; TEMP 36.3–37.1; O2SAT 90–98
[2021-02-01] MEDS: DEXAMETHASONE 10 MG/ML VIAL 6 MG IV (09:48)
[2021-02-01] MEDS: AZITHROMYCIN 250 MG TABLET PO (09:48)
[2021-02-01] MEDS: ENOXAPARIN 40 MG/0.4 ML SYRINGE SUBCUT (09:48)
[2021-02-01] MEDS: SODIUM CHLORIDE 0.9% FLUSH 10 ML IV ×2 (09:50→21:52)
--- NOTE | 2021-02-01 17:23 | P.PN_ITS ---
Subjective Subjective Date Patient Seen: 02/01/21 Interval history: PATIENT SAID THAT HE IS FEELING BETTER DENIES ANY INCREASING SHORTNESS OF BREATH NO CHEST PRESSURE NO CHEST PAIN CONTINUE TO WEAR SOME DYSPNEA ON EXERTION HOWEVER NO OTHER COMPLAINT Exam Vital Signs (past 8 hours): - 02/01/21 12:00 Temperature 98.5 F Pulse Rate 72 Respiratory Rate 16 Blood Pressure 92/56 L Pulse Oximetry 96 Fraction of Inspired Oxygen 97 Oxygen Delivery Method High Flow Nasal Cannula Oxygen Flow Rate 7 Narrative Exam Narrative: GENERAL: APPEARS STATED AGE. NO ACUTE DISTRESS HEAD: ATRAUMATIC NORMOCEPHALIC NECK: SUPPLE. NO LAD CHEST: REGULAR RATE. NO RUB PULM: CLEAR TO AUSCULTATION BILATERALLY. NO RALES. NO WHEEZING ABDOMINAL: BOWEL SOUNDS ARE PRESENT IN ALL 4 QUADRANTS. NO GUARDING EXTREMITIES: NO EDEMA. NO CYANOSIS NO CLUBBING NEUROLOGICAL: CRANIAL NERVES 2-12 TO BE GROSSLY INTACT. NONFOCAL EXAM PSYCHIATRY: APPROPRIATE WHEN AFFECT Objective Labs Result Diagrams: 01/29/21 06:12 01/29/21 06:12 [facility] Medical History Patient denies medical problems Social History household members: spouse and children Smoking Status: Never smoker Assessment & Plan Assessment & Plan narrative: PROBLEM LIST ACUTE HYPOXIC RESPIRATORY FAILURE COVID 19 PNEUMONIA PLAN PATIENT APPEARED TO BE IMPROVED CLINICALLY CONTINUE TO MAINTAIN ISOLATION PROCEDURE PER HOSPITAL PROTOCOL CONTINUE A ANTERIORLY WITH ZITHROMAX IN FOR NOW PATIENT IS STILL REQUIRING 7 L OF OXYGEN PER MINUTE CONTINUE AND TITRATE INDICATED FOLLOW WITH SERIAL CHEST X-RAY AND ABG INDICATED CLINICALLY INCENTIVE SPIROMETER WILL BE ORDERED FOR PATIENT TO USE IV ARE AWAKE ADDITIONAL MANAGEMENT PER CLINICAL COURSE IF CONTINUED TO IMPROVE, POSSIBLE DISCHARGE TODAY NEXT 48-72 HOURS Time Spent With Patient Critical Care time: I spent a total of [] minutes of critical care time on this patient's care today ; this time is exclusive of procedural time. Quality VTE Deep Vein Thrombosis/Pulmonary Embolism Present on Admission: No
[2021-02-01] MEDS: ACETAMINOPHEN 325 MG TABLET 650 MG PO (20:49)
[2021-02-01] MEDS: MELATONIN 3 MG TABLET 6 MG PO (20:49)
[2021-02-02] VITALS: BP 118/80; PULSE 49; RESP 16; TEMP 36.9; O2SAT 98
[2021-02-02 03:38] VITALS: PULSE 55; O2SAT 96
[2021-02-02 04:31] VITALS: BP 114/61; PULSE 60; RESP 17; TEMP 37.3; O2SAT 97
--- NOTE | 2021-02-02 06:08 | DI.RAD.S_ITS ---
PROCEDURE: XR CHEST 1V INDICATIONS: PNA F/U TECHNIQUE: One view of the chest was acquired. COMPARISON: [facility], , XR CHEST 1V, 01/28/2021, 17:47. FINDINGS: Surgical changes and devices: None. Lungs and pleura: Diffuse bilateral airspace opacities are grossly stable in extent given differences in respiration. No pleural effusion or pneumothorax. Mediastinum: Mediastinal contours appear normal. Heart size is normal. Bones and chest wall: No suspicious bony lesions. Overlying soft tissues appear unremarkable. IMPRESSION: Stable diffuse bilateral airspace opacities. There is no significant discrepancy when compared to the overnight preliminary report. Dictated by: Erich Sherman M.D. on 02/02/2021 at 8:16 Approved by: Erich Sherman M.D. on 02/02/2021 at 8:18
[2021-02-02 06:23] VITALS: O2SAT 96
[2021-02-02 06:25] VITALS: O2SAT 92
[2021-02-02 08:00] VITALS: BP 108/67; PULSE 80; RESP 20; TEMP 36.3; O2SAT 96
[2021-02-02] MEDS: DEXAMETHASONE 10 MG/ML VIAL 6 MG IV (09:11)
[2021-02-02] MEDS: AZITHROMYCIN 250 MG TABLET PO (09:11)
[2021-02-02] MEDS: ENOXAPARIN 40 MG/0.4 ML SYRINGE SUBCUT (09:11)
[2021-02-02] MEDS: SODIUM CHLORIDE 0.9% FLUSH 10 ML IV (09:11)
--- NOTE | 2021-02-02 10:26 | PM.DS.1 ---
History of Present Illness History of Present Illness Date Patient Seen: 02/02/21 Chief complaint: possible pneumonia Narrative: Mr. Leal is a 50M with no significant PMH who presents with fevers, cough and recent positive COVID test. He notes that he did get the JJ vaccine in early December. Approximately 10 days ago he began developing symptoms of cough. He was seen here in the ED a few days ago but was able to be discharged home. His family has had symptoms of COVID. Since being discharge he has had worsening shortness of breath and fevers. He bought a pulse ox with sats in the 80s primarily with exertion. He was prescribed azithromycin and ivermectin, but has not taken ivermectin. He did not get monoclonal antibody. In the ED workup was done, vitals notable for temperature of 99.9, hr in 90s, rr in 20s, pulse ox in high 80s to low 90s. He was placed on oxygen. Labs notable for WBC 10.2, hgb 13.5, plts 196, na 133, creatinine 0.97. Lactate 2.5, improved to 1.1 with IV fluids. CRP 25.8, ldh 1331. Chest xray showed patchy bilateral pulmonary infiltrates. He was admitted for further treatment. Family history: patient denies any known medical history for parents Discharge Providers Provider Date of admission: 01/28/21 20:31 Discharge Date: 02/02/21 Discharge provider: Alvaro Bae DO Summary Hospital Course Discharge Diagnosis: ACUTE RESPIRATORY FAILURE. HYPOXIC COVID-19 PNEUMONIA. DISCHARGED ON ANTIBIOTICS Hospital Course: THIS IS A VERY HEALTHY 50-YEAR-OLD MALE WITHOUT SIGNIFICANT PAST MEDICAL HISTORY WITH THE HOSPITAL WITH SIGN OF RESPIRATORY FAILURE WHICH WAS DETERMINED TO BE DUE TO COVID-19 PNEUMONIA. HE HAS BEEN SHOWING SIGNIFICANT IMPROVEMENT OVER THE LAST 48-72 HOURS. STILL REQUIRING OXYGEN SUPPLEMENT TO MAINTAIN PROPER OXYGEN SATURATION. HE WILL BE DISCHARGED ON A 7 DAY COURSE OF ANTIBIOTICS. STEROID TAPER WELL DUONEB TREATMENT WILL ALSO BE ORDERED. HE WAS ALSO DISCHARGED ON A VITAMIN COMBO PER LATEST RECOMMENDATIONS. HE WILL NEED TO FOLLOW CDC RECOMMENDATION REGARD TO ONGOING CURRENT PANDEMIC. ADDITIONAL MANAGEMENT WILL BE DEFERRED TO HIS OUTPATIENT PROVIDERS Status at Discharge Cognitive/behavioral status at discharge: oriented Functional status at discharge: independent ambulation Overall status at discharge: patient is progressing back to baseline Time Spent with Patient Time spent: Greater than 30 minutes Exam Vital Signs (past 8 hours): - 02/02/21 03:38 02/02/21 04:31 02/02/21 06:23 Temperature 99.1 F Pulse Rate 55 L 60 Respiratory Rate 17 Blood Pressure 114/61 Pulse Oximetry 96 97 96 02/02/21 06:25 02/02/21 08:00 Temperature 97.3 F L Pulse Rate 80 Respiratory Rate 20 Blood Pressure 108/67 Pulse Oximetry 92 96 Fraction of Inspired Oxygen 40 Oxygen Delivery Method High Flow Nasal Cannula Oxygen Flow Rate 3 Narrative Exam Narrative: NO ACUTE DISTRESS. PATIENT IS ALERT ORIENTED X3. VITAL SIGNS STABLE HEAD ATRAUMATIC NORMOCEPHALIC NECK : SUPPLE WITHOUT ADENOPATHY NO CAROTID BRUITS EYE: EOMI, PERRLA, NORMAL CONJUNCTIVA; NO JAUNDICE CHEST: REGULAR RATE. NO RUBS. PMI IS NON DISPLACED. NO MURMURS; NORMAL S1-S2 PULMONARY: DECREASED BS OVER THE BASES. MILD BIBASILAR CRACKLES NOTED; NO INCREASED DULLNESS TO PERCUSSION ABDOMEN: SOFT. NONTENDER. NONDISTENDED. BOWEL SOUNDS ARE PRESENT IN ALL 4 QUADRANTS. NO MASS. EXTREMITIES: NO EDEMA.. NO CYANOSIS CLUBBING NOTED. NEURO: CRANIAL NERVES 2-12 GROSSLY INTACT. NO FOCAL NEUROLOGICAL DEFICIT NOTED. MSK: NORMAL RANGE OF MOTION FOR AGE. NO JOINT EFFUSION. SKIN: NORMAL FOR ETHNICITY; NO ECCHYMOSIS. NO LESION. GOOD TURGOR.; NO RASHES : NORMAL EXTERNAL GENITALIA. PSYCH : APPROPRIATE MOOD AND AFFECT. ALERT AWAKE ORIENTED X3 Objective Labs Result Diagrams: 01/29/21 06:12 01/29/21 06:12 [facility] Medical History Patient denies medical problems Social History household members: spouse and children Smoking Status: Never smoker Discharge Plan Discharge Plan Patient Disposition: Home Nursing Discharge Comment: Oxygen and nebulizer device for home use will need to be set up prior to discharge please. Thanks Discharge orders & Medications Prescriptions: New melatonin 3 mg Tablet 6 mg PO BEDTIME Qty: 60 0RF doxycycline monohydrate 100 mg tablet 100 mg PO BID Qty: 20 0RF cefdinir 300 mg capsule 300 mg PO BID Qty: 20 0RF Acidophilus Capsule 100 mmu cells PO DAILY Qty: 30 0RF ascorbic acid (vitamin C) [Vitamin C] 1,000 mg tablet 1 g PO DAILY Qty: 30 0RF cholecalciferol (vitamin D3) [Vitamin D3] 125 mcg (5,000 unit) tablet 125 mcg PO DAILY Qty: 30 0RF B12 Active 1,000 mcg tablet,chewable 1,000 mcg PO DAILY Qty: 30 0RF multivitamin Tablet 1 tab PO DAILY Qty: 30 0RF albuterol sulfate 90 mcg/actuation HFA aerosol inhaler 2 puff inhalation Q4-6H PRN (Reason: shortness of breath or wheezing) Qty: 6.7 0RF ipratropium-albuterol 0.5 mg-3 mg(2.5 mg base)/3 mL solution for nebulization 3 ml inhalation Q4-6H PRN (Reason: shortness of breath or wheezing) Qty: 90 0RF prednisone 5 mg tablet 5 mg PO DIRECTED Qty: 30 0RF Rx Instructions: 40mg po x 2 days 30mg po x 2 days 20mg po x 3 days 10mg po x 3 days zinc 50 mg tablet 50 mg PO BID Qty: 60 0RF Discontinued Zithromax Z-Rex 250 mg Capsule 500 mg PO DIRECTED 0RF Diet/Activity/Treatments Diet: Diet as Tolerated Oxygen: Home o2, You have been on 3L today and tolerating well. Adjust as needed Skin/Wound/Dressing Care Report to your healthcare provider any signs of infection, such as:: chills, fever, night sweats, increased pain, unusual drainage and unusual redness Visit Report/Discharge Packet Instructions: Home Oxygen Therapy, DI for Oxygen Therapy -- Adult, How to Use a Nebulizer, Prednisone, DI for COVID-19 (Suspected or Confirmed ), How to Care for Someone with COVID-19, Doxycycline (By mouth) Quality VTE Deep Vein Thrombosis/Pulmonary Embolism Present on Admission: No
--- NOTE | 2021-02-02 12:11 | CM.DPC ---
DCP Discharge Home Per MD, pt is medically stable to d/c home today after improvements from COVID+ dx and placing order for RT to assess for likely new home oxygen needs while recovering from COVID at home. Pt has called spouse to update. Per RN, willing to call and update spouse on pt medical status for d/c instructions as SW unable to call spouse due to triage needs and no identified barriers to d/c. Plan: Patient to d/c home today via spouse POV and new home oxygen for ongoing recovery from COVID. FRED Tompkins
--- NOTE | 2021-02-02 14:52 | PC.NURSE ---
Patient teaching done with and O2 teaching provided by RT Hardin. Patient states, I am just ready to get out of here IV removed.
== END 2021-02-02 15:27 | disposition home or self-care (01) | DRG 177 ==
LOC: ED 18:50 → AC 01-29 06:36 → ICU 02-01 15:41 → AC 02-02 07:53 → ICU 02-02 07:56
PROVIDERS: Admitting Provider Internal Medicine; Emergency Provider Emergency Medicine; Referring Provider Emergency Medicine; Visit Provider Internal Medicine
DX: U07.1 COVID-19 (principal); J12.82 Pneumonia due to coronavirus disease 2019; J96.01 Acute respiratory failure with hypoxia
CPT/HCPCS: 36415; 71045; 80048; 80053; 82550; 82553; 82728; 83605; 83615; 83880; 84145; 84484; 85025; 85379; 86140; 87635; 93005; 94618; 94762; 96361; 96374; 99285; C9803; J1100; J1650